=== PATIENT | female | born 1970 | race Asian ===

== ENCOUNTER 2022-04-16 07:47 | Day surgery (SDC) | payer OTHER ==
[2022-04-11 09:17] VITALS: BMI 29.9
[2022-04-16 08:26] VITALS: RESP 18; TEMP 97
[2022-04-16 09:52] VITALS: PULSE 68
[2022-04-16 10:04] VITALS: BP 107/75
== END 2022-04-16 10:37 | disposition home or self-care (01) ==
LOC: FASU-ENDO 07:47
PROVIDERS: ATTEND Internal Medicine Gastroenterology
PROC: 0DJD8ZZ Inspection of Lower Intestinal Tract, Via Natural or Artificial Opening Endoscopic (ICD-10-PCS; principal; 2022-04-16 09:20)
DX: Z12.11 Encounter for screening for malignant neoplasm of colon (principal)